=== PATIENT | female | born 1995 | race Caucasian/White ===

== ENCOUNTER 2025-01-29 20:50 | Emergency (ER) | payer MEDICAID, SELFPAY ==
[2025-01-29 21:02] VITALS: BP 126/87; PULSE 120; RESP 20; TEMP 38.1; O2SAT 96
--- NOTE | 2025-01-29 21:10 | XR_ITS ---
Examination: PA lateral chest 2 views TECHNIQUE: Upright PA and lateral chest 2 views Date and time: January 29, 2025, 2135 hours INDICATIONS: Coughing 1 week with fever 2 days. FINDINGS: Significant bibasilar pneumonia Normal heart size The osseous structures are intact IMPRESSION: Significant right base pneumonia
--- NOTE | 2025-01-29 21:35 | PD.ASTHM ---
ED Asthma RME/HPI General Chief Complaint: Flu Like Symptoms Stated Complaint: COUGH Time Seen by Provider: 01/29/25 21:10 Arrival date/time: 01/29/25 20:50 29F with history of asthma presents to ED with 1 week of cough and 1 day of wheezing. Daughter has similar symptoms. Limitations: no limitations Related Data Previous Rx's ?Medication ?Instructions ?Recorded amoxicillin 500 mg tablet 1 tab PO TID #30 tab-caps 03/17/12 albuterol sulfate 1.25 mg/3 mL 1.25 mg (3 mL) inhalation QID PRN 01/29/25 solution for nebulization shortness of breath or wheezing #75 mL amoxicillin 875 mg tablet 875 mg PO TID 5 days #15 tabs 01/29/25 azithromycin 250 mg tablet See Rx Instructions PO .COMPLEX #6 01/29/25 tabs Allergies Allergy/AdvReac Type Severity Reaction Status Date / Time No Known Allergies Allergy Verified 01/29/25 20:50 Review of Systems Review of Systems Systems Reviewed: All systems reviewed, normal except as documented Constitutional Constitutional: Reports system reviewed and no additional complaints, except as documented, Denies fever(s) and Denies headache(s) ENT Ears, Nose, Mouth, and Throat: Denies disequilibrium and Denies headache(s) Cardiovascular Cardiovascular: Reports system reviewed and no additional complaints, except as documented, Denies chest pain and Denies dyspnea Respiratory Respiratory: Reports system reviewed and no additional complaints, except as documented, Reports as per HPI, Reports cough, Denies dyspnea and Reports wheezing Gastrointestinal Gastrointestinal: Reports system reviewed and no additional complaints, except as documented, Denies abdominal pain, Denies nausea and Denies vomiting Neurologic Neurologic: Reports system reviewed and no additional complaints, except as documented, Denies confusion, Denies disequilibrium and Denies headache(s) Psychiatric Psychiatric: Denies confusion Allergic/Immunologic Allergic/Immunologic: Reports wheezing Past Medical History Social History SMOKING STATUS: Never smoker ED Exam General Limitations: Present no limitations General appearance: Present alert and in no apparent distress Head Head exam: Present atraumatic Eye Eye exam: Present normal appearance, PERRL and EOMI ENT ENT exam: Present normal exam, normal oropharynx and mucous membranes moist Neck Neck exam: Present normal inspection, full ROM and trachea midline Chest Chest inspection: Present normal inspection and symmetric chest wall rise Respiratory Respiratory exam: Present wheezes Cardiovascular Cardiovascular exam: Present regular rate, normal rhythm and normal heart sounds Abdominal Exam Abdominal exam: Present soft and normal bowel sounds Extremities Exam Extremities exam: Present normal inspection and full ROM Back Exam Back exam: Present normal inspection and full ROM Neurological Exam Neurological exam: Present alert, oriented X3 and CN II-XII intact Psychiatric Psychiatric exam: Present normal affect and normal mood Skin Skin exam: Present warm, dry, intact and normal color Course Quality Measures none Orders Category Date Time Status XR chest 2V Stat Exams 01/29/25 21:10 Ordered Acetaminophen Tab [Tylenol ES Tab] Med 01/29/25 21:10 Discontinued 1,000 mg PO X1 ONE Albuterol/Ipratr Rt Elba [Duoneb Rt Elba] Med 01/29/25 21:10 Discontinued 6 ml INH X1 ONE Dexamethasone Inj [Decadron Inj] Med 01/29/25 21:10 Discontinued 10 mg PO X1 ONE Vital Signs Vital signs: Vital Signs Temperature 100.5 F H 01/29/25 21:02 Pulse Rate 120 H 01/29/25 21:02 Respiratory Rate 20 01/29/25 21:02 Blood Pressure 126/87 H 01/29/25 21:02 Pulse Oximetry (%) 96 01/29/25 21:02 Oxygen Delivery Method Room Air 01/29/25 21:02 Asthma MDM Narrative MDM Narrative:: 29F with history of asthma presents to ED with 1 week of cough and 1 day of wheezing. Daughter has similar symptoms. Physical exam reveals some wheezing in lungs. Patient is mildly febrile, but does not appear toxic. Meds improved symptoms. CXR PNA. Meds and after school counselor given. Patient data External records reviewed:: None Clinical information provided by:: patient Social determinants that could affect healthcare access:: none Patient has the following chronic illnesses:: asthma How is presenting disease/condition affected by chronic disease/condition?: exacerbated by Evaluation data The following diagnostics were reviewed and interpreted by me:: radiology exam(s) Lab and/or radiology exams considered but not ordered:: ordered Interpretation Summary: above Medications / Prescriptions Medications or Prescriptions considered but not ordered:: ordered Medication administrations:: Medication Administration History Discontinued Medications Acetaminophen (Acetaminophen 500 Mg Tablet) 1,000 mg PO X1 ONE Stop: 01/29/25 21:11 Albuterol/Ipratropium (Albuterol/Ipratropium (Duoneb) Rt Elba 3 Ml Nebu) 6 ml INH X1 ONE Stop: 01/29/25 21:11 Dexamethasone Sodium Phosphate (Dexamethasone Sod Phos Inj 10 Mg/Ml Vial) 10 mg PO X1 ONE Stop: 01/29/25 21:11 Consultations Consultation(s) initiated? (list below): No Diagnosis Differential diagnosis asthma: Acute exacerbation, Status asthmaticus, Acute asthmatic bronchitis, PE, Pneumonia, COPD exacerbation, Pulmonary edema systolic, Pulmonary edema dystolic, ARDS, Pneumothorax and Foreign body in trachea Most likely diagnosis given after review of the tests above:: CAP Admission Indicated Admission indicated?: not indicated Admission Request Was there a request for admission?: No Disposition Plan Disposition Plan: Discharge Discharge Attestation Discharge Attestation: The patient and all family members were given an opportunity to ask questions and understood the discharge instructions. Discharge instructions specifically effects, indications for sooner follow up or return to the emergency department, and the expected course of current diagnosis. Patient condition: Stable Discharge Plan Plan Patient Disposition: HOME (Self Care) Discharge Disposition comment: Stable Prescriptions/Referrals Prescriptions/Med Rec: New amoxicillin 875 mg tablet 875 mg PO TID 5 Days Qty: 15 0RF azithromycin 250 mg tablet See Rx Instructions .ROUTE .COMPLEX Qty: 6 0RF Rx Instructions: For 250 mg dose pack: take 500 mg today (day 1), then 250 mg for 4 days (days 2-5) albuterol sulfate 1.25 mg/3 mL solution for nebulization 1.25 mg inhalation QID PRN (Reason: shortness of breath or wheezing) Qty: 75 0RF No Action amoxicillin 500 MG tablet 1 tab PO TID Qty: 30 0RF Referrals: No Primary/Family,Physician [Primary Care Provider] - In 1 week Problem List Clinical Impression: CAP (community acquired pneumonia) Patient/Caregiver Discharge Instructions Additional Instructions: Please follow-up with PCP within 24-48 hours and return immediately if symptoms worsen. Ibuprofen/Tylenol can be used simultaneously for greater fever/pain control. Benadryl is good for cough, congestion, and sleep. Print Language: [place] Stand Alone Forms: Patient Portal Info Letter PA/[employer] SUPERVISOR Supervising Physician PA/[employer] SUPERVISOR Supervising Physician: Dr. Figueroa
[2025-01-29 21:43] VITALS: TEMP 38.1
[2025-01-29] MEDS: DEXAMETHASONE SOD PHOS INJ 10 MG/ML VIAL PO (21:43)
[2025-01-29] MEDS: ACETAMINOPHEN 500 MG TABLET 1000 MG PO (21:43)
[2025-01-29] MEDS: ALBUTEROL/IPRATROPIUM (Duoneb) RT SOL 3 ML NEBU 6 ML INH (21:54)
[2025-01-29 21:55] VITALS: PULSE 123; RESP 19; O2SAT 100
[2025-01-29] MEDS: cefTRIAXone 1,000 MG, LIDOCAINE 1% 20 ML 2.1 ML IM (22:20)
== END 2025-01-29 22:37 | disposition home or self-care (01) ==
PROVIDERS: Emergency Provider Emergency Medicine
DX: J18.9 Pneumonia, unspecified organism (principal); J45.909 Unspecified asthma, uncomplicated
CPT/HCPCS: 71046; 94640; 96372; 99284; A9270; J0696; J1100; J3490

== ENCOUNTER → 2025-07-14 | Outpatient (CLI) | payer MEDICAID, SELFPAY ==
--- NOTE | 2025-07-14 07:15 | XR_ITS ---
Examination: Pelvic ultrasound, transabdominal, complete Technique: Transabdominal ultrasound of the pelvis performed using grayscale imaging Date and time of exam: July 14, 2025, 0751 hours INDICATIONS: Irregular menses 3 years FINDINGS: Uterus 9.5 cm endometrial stripe 0.4 cm No uterine mass or intrauterine gestation Right ovary 2.5 cm arterial flow Left ovary 2.6 cm arterial flow IMPRESSION: Negative examination
--- NOTE | 2025-07-14 07:15 | XR_ITS ---
Examination: Transvaginal ultrasound of the pelvis, complete Technique: Transvaginal sonographic images pelvis performed using veliz scale imaging Exam date and time: July 14, 2025, 0800 hours INDICATIONS: Irregular heavy menses beginning 3 months ago FINDINGS: Uterus 8.3 cm endometrial stripe 0.4 cm Right ovary 1.9 cm Left ovary 2.5 cm Bilateral arterial flow Multiple left ovarian follicles, small subcentimeter IMPRESSION: No uterine mass or intrauterine gestation.
== END | disposition home or self-care (01) ==
LOC: CDIM 07:22
PROVIDERS: PCP Nurse Practitioner Family; Referring Provider Nurse Practitioner Family; Visit Provider Nurse Practitioner Family
DX: N92.0 Excessive and frequent menstruation with regular cycle (principal)
CPT/HCPCS: 76830; 76856